=== PATIENT | male | born 1970 | race Hispanic/Latino ===

== ENCOUNTER 2018-02-28 13:20 | Emergency (ER) | payer BC, OTHER, SELFPAY ==
[2018-02-28] MEDS ORDERED: CYCLOBENZAPRINE HCL 10 MG TABLET ONE (14:11)
[2018-02-28] MEDS ORDERED: IBUPROFEN 600 MG TABLET ONE (14:11)
[2018-02-28 14:23] LABS: APPEARANCE,URINE Clear (CLEAR); BILIRUBIN,URINE Negative (NEGATIVE); COLOR,URINE Yellow (YELLOW); GLUCOSE, URINE (UA) Negative (NEGATIVE); KETONES,URINE Negative (NEGATIVE); LEUKOCYTE ESTERASE ,URINE Negative (NEGATIVE); NITRATE,URINE Negative (NEGATIVE); OCCULT BLOOD,URINE Negative (NEGATIVE); PROTEIN,URINE Negative (NEGATIVE); UROBILINOGEN,URINE 0.2 mg/dL (0.2-1.0)
== END 2018-02-28 15:01 | disposition home or self-care (01) ==
LOC: EDH 13:20
DX: M62.830 Muscle spasm of back (principal)
CPT/HCPCS: 81003

== ENCOUNTER → 2020-02-19 | Outpatient (CLI) | payer OTHER | END | disposition home or self-care (01) | LOC: RAH 15:17 | PROVIDERS: ATTEND Internal Medicine Cardiovascular Disease | DX: Z13.6 Encounter for screening for cardiovascular disorders (principal) | CPT/HCPCS: 75571 ==